=== PATIENT | male | born 1995 | race Caucasian/White ===

== ENCOUNTER 2019-01-26 14:31 | Emergency (ER) | payer MEDICAID ==
[2019-01-26 16:07] LABS: INR 1.13 (0.5-1.4); PROTHROMBIN TIME (TEST) 11.6 SECONDS (9.5-11.5)
[2019-01-26 16:12] LABS: % BASOPHILS 0.9 % (0.0-2.0); % EOSINOPHILS 0.6 % (0.0-5.0); % LYMPHOCYTES 12.9 % (20.0-50.0); % MONOCYTES 9.4 % (2.0-10.0); % NEUTROPHILS 76.2 % (40.0-80.0); BASOPHILE ABSOLUTE 0.1 Th/cumm (0-0.2); EOSINOPHILE ABSOLUTE 0.1 Th/cmm (0.1-0.4); HEMATOCRIT 41.9 % (41.0-60); LYMPHOCYTE ABSOLUTE 1.9 Th/cmm (1.5-3.0); MEAN CORPUSCULAR HEMOGLOBIN 28.3 pg (26.0-30.0); MEAN CORPUSCULAR HGB CONC 33.3 pg (28.0-36.0); MEAN PLATELET VOLUME 8.2 fl; MONOCYTE ABSOLUTE 1.4 Th/cmm (0.3-1.0); PLATELET COUNT 327 Th/cmm (150-400); RED BLOOD COUNT 4.94 Mil/cmm (4.30-5.70); WHITE BLOOD COUNT 14.5 Th/cmm (4.8-10.8)
[2019-01-26 16:17] LABS: ALB/GLOB RATIO 1.8 (1.0-1.8); ALBUMIN 4.4 gm/dL (4.2-5.5); ALKALINE PHOSPHATASE 73 U/L (34-104); ANION GAP 15.6 (7.0-16.0); BILIRUBIN,TOTAL 1.2 mg/dL (0.3-1.0); BUN - UREA NITROGEN 9 mg/dL (7-25); CALCIUM SERUM 9.9 mg/dL (8.6-10.3); CARBON DIOXIDE 19.1 mEq/L (21.0-31.0); CHLORIDE 106 mEq/L (98-107); CREATININE - SERUM 0.9 mg/dL (0.7-1.3); GFR AFRICAN-AMERICAN > 60.0 ml/min (>90); GFR NON AFRICAN-AMERICAN > 60.0 ml/min; GLUCOSE 90 mg/dL (70-105); POTASSIUM SERUM 3.7 mEq/L (3.5-5.1); SGOT 16 U/L (13-39); SGPT/ALT 10 U/L (7-52); SODIUM SERUM 137 mEq/L (136-145); TOTAL PROTEIN,SERUM 6.9 gm/dL (6.0-8.3)
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
[2019-01-26 16:45] LABS: AMPHETAMINE URINE POSITIVE (NEGATIVE)
[2019-01-26 16:46] LABS: BARBITURATES URINE NEGATIVE (NEGATIVE); BENZODIAZEPINES QUAL URINE NEGATIVE (NEGATIVE); CANNABINOID THC POSITIVE (NEGATIVE); COCAINE METABOLITE QUAL URINE NEGATIVE (NEGATIVE); METHADONE URINE NEGATIVE (NEGATIVE); METHAMPHETAMINES QUAL URINE POSITIVE (NEGATIVE); OPIATES (MORPHINE) QUAL. URINE NEGATIVE (NEGATIVE); PHENCYCLIDINE (PCP) URINE NEGATIVE (NEGATIVE); TRICYCLICS (TCA) QUAL. URINE NEGATIVE (NEGATIVE)
--- NOTE | 2019-01-27 09:52 | Diagnostic Imaging Report ---
Head CT without intravenous contrast Indication: Trauma Comparison: Acute facial bone the same day Technique: Axial images were obtained from the vertex to the skull base without IV contrast. Coronal reconstructions were made. Total DLP: 603, CTDI33.9 FINDINGS: Images of the brain obtained without contrast demonstrate no acute hemorrhage. No mass lesions identified. The ventricles and basal cisterns are patent. The fong-white matter differentiation is preserved. There is no mass effect or midline shift. No skull fractures identified. No soft tissue swelling IMPRESSION: No acute intracranial abnormality.
--- NOTE | 2019-01-27 09:56 | Diagnostic Imaging Report ---
CT maxillofacial without IV contrast History: Trauma Comparison: CT head the same day Technique: Axial images of the facial bones were obtained without IV contrast. Reconstructions were made. Total DLP 351, CTD I 346 Findings: The bilateral orbital floors are intact. The Globes and intraconal compartments are intact. Age-indeterminate nasal fractures are suspected. No focal soft tissue swelling. The bilateral zygomatic arches are intact. The bilateral mandibular condyles are intact. Mucous changes cyst versus polyps of the right maxillary sinus are noted. There is mucosal thickening of the paranasal sinuses. There is soft tissue swelling seen along the bilateral premaxillary regions. IMPRESSION: Age-indeterminate nondisplaced nasal bone fractures are suspected. No significant focal soft tissue swelling is region Soft tissue swelling of bilateral premaxillary regions. Right maxillary sinus mucous retention cyst versus polyps. No air-fluid levels identified. No evidence of hemosinus. Intact bilateral orbital floors.
[2019-01-27] MEDS ORDERED: cefTRIAXone 1 GM in Sodium Chloride 0.9% 50 ML IV ONE (12:59)
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
== END 2019-01-27 18:21 | disposition short-term general hospital (02) ==
LOC: ER 14:31
DX: S02.2XXA Fracture of nasal bones, initial encounter for closed fracture (principal); S06.9X0A Unspecified intracranial injury without loss of consciousness, initial encounter; F32.9 Major depressive disorder, single episode, unspecified; F19.10 Other psychoactive substance abuse, uncomplicated; F17.200 Nicotine dependence, unspecified, uncomplicated; Y04.8XXA Assault by other bodily force, initial encounter; Y93.89 Activity, other specified; Y92.89 Other specified places as the place of occurrence of the external cause; Y99.8 Other external cause status
CPT/HCPCS: 99285; 96365; 96372 ×2; 96375; 70450; 70486; 36415; 80307; 85025; 85610; 80329 ×2; 80320; 80053; J2060 ×2; J0696 ×2